=== PATIENT | female | born 1960 | race Caucasian/White ===

== ENCOUNTER 2018-06-29 09:54 | Emergency (ER) | payer OTHER ==
[2018-06-29] MEDS ORDERED: Lidocaine 1% 10 ML MDV INJECT ONE (10:18)
--- NOTE | 2018-06-29 10:24 | EDM.PDOC ---
ED HPI GENERAL MEDICAL PROBLEM - General Chief Complaint: Laceration Stated Complaint: L PINKY FINGER LAC Time Seen by Provider: 06/29/18 10:18 Source of Information: Reports: Patient, Family (spouse) History Limitations: Reports: No Limitations - History of Present Illness INITIAL COMMENTS - FREE TEXT/NARRATIVE: 57-year-old female presents to the ED with an acute flap laceration to the volar aspect of her left fifth finger over the MCP joint. She states she was cleaning a picture frame and it broke and she lacerated it on sharp glass. She believes her tetanus toxoid is up-to-date but is going to check with her clinic in [place]. She denies any other injuries. Injury occurred within the last hour. Of note the patient is right hand dominant. Onset: Today Onset Date: 06/29/18 Onset Time: 09:40 Duration: Minutes: Location: Reports: Upper Extremity, Left (Volar aspect of the left fifth finger) Quality: Reports: Ache ( over the MCP joint.) Severity: Moderate Improves with: Reports: None Worsens with: Reports: None Context: Reports: Trauma. 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: Other (see below) (None.) - Related Data Allergies Allergy/AdvReac Type Severity Reaction Status Date / Time No Known Allergies Allergy Verified 06/29/18 10:24 Home Meds: Home Meds Levothyroxine Sodium [Synthroid] 137 mcg PO DAILY 06/29/18 [History] Verapamil [Covera-HS] 240 mg PO DAILY 06/29/18 [History] Past Medical History Cardiovascular History: Reports: Hypertension Endocrine/Metabolic History: Reports: Hypothyroidism (On levothyroxine) Social & Family History - Living Situation & Occupation Living situation: Reports: (Currently visiting from [place].) ED ROS GENERAL - Review of Systems Review Of Systems: See Below Constitutional: Reports: No Symptoms HEENT: Reports: No Symptoms Respiratory: Reports: No Symptoms Cardiovascular: Reports: Blood Pressure Problem Endocrine: Reports: Fatigue GI/Abdominal: Reports: No Symptoms : Reports: No Symptoms Musculoskeletal: Reports: No Symptoms Skin: Reports: Other (Laceration volar aspect of left fifth finger as described in history of present illness) Neurological: Reports: Other (tearful) Psychiatric: Reports: No Symptoms Hematologic/Lymphatic: Reports: Other Immunologic: Reports: No Symptoms ED EXAM, SKIN/RASH Exam: See Below Exam Limited By: No Limitations General Appearance: Anxious, Moderate Distress (Very apprehensive.) Extremities: Other (Examination was limited to the left hand. She has a flap laceration at the base of the left fifth finger over the MCP joint. She has full range of motion with no evidence of tendon laceration and she has normal sensation in the distal aspect of the radial and ulnar aspect of her finger. Wound will require) Neurological: Alert, Oriented ( laceration repair.), CN II-XII Intact, Normal Cognition Psychiatric: Anxious, Tearful Skin: Warm, Dry, Intact, Normal Color, No Rash ED SKIN PROCEDURES - Laceration/Wound Repair Left Lower Anterior Proximal Digit - 5th (Baby) Lac/Wound length In cm: 2.5 (Flap laceration at the base of the left fifth finger.) Appearance: Subcutaneous, Clean Distal NVT: Neuro & Vascular Intact Anesthetic Type: Local Local Anesthesia - Lidocaine (Xylocaine): 1% Plain Local Anesthetic Volume: Other (8 mL) Skin Prep: Saline Exploration/Debridement/Repair: Wound Explored Closed with: Sutures Suture Size: 4-0 # of Sutures: 8 Suture Type: Nylon, Interrupted, Simple Course - Vital Signs Last Recorded V/S: Last Vital Signs Temp 35.9 C 06/29/18 10:14 Pulse 87 06/29/18 10:14 Resp 16 06/29/18 10:14 BP 157/89 H 06/29/18 10:14 Pulse Ox 95 06/29/18 10:14 - Orders/Labs/Meds Orders: Active Orders 24 hr Category Date Time Status Vaccines to be Administered [RC] PER UNIT ROUTINE Care 06/29/18 10:50 Active Meds: Medications Discontinued Medications Generic Name Dose Route Start Last Admin Trade Name Freq PRN Reason Stop Dose Admin Diphtheria/Tetanus/Acell Pertussis 0.5 ml 06/29/18 10:50 06/29/18 11:04 Adacel IM 06/29/18 10:51 0.5 ml .ONCE ONE Administration Lidocaine HCl 10 ml 06/29/18 10:18 06/29/18 10:55 Xylocaine 1% INJECT 06/29/18 10:19 10 ml ONETIME ONE Administration - Radiology Interpretation Free Text/Narrative:: 57-year-old female presents to the ED with an acute flap laceration to the volar aspect of her left fifth finger over the MCP joint and proximal phalanx. It is about 2.5 cm in length. After consultation with her clinic in [place] appears that her last tetanus diphtheria and pertussis vaccine was updated in 2003. Therefore she will be for TDap today. Plan wound will be repaired under local anesthetic using lidocaine 1%. - Re-Assessments/Exams Free Text/Narrative Re-Assessment/Exam: 06/29/18 11:23 laceration base of the left fifth finger was cleansed with saline and then anesthetized with 1% lidocaine. Wound was then explored and no evidence of flexor tendon laceration identified. One small arterial bleed appreciated and was ligated to stop the bleeding. Wound was closed with 8 4-0 Ethilon sutures in total. Sutures will need to be removed in 10-12 days time. Tdap was updated today. Departure - Departure Time of Disposition: 11:19 Disposition: Home, Self-Care 01 Condition: Fair Clinical Impression: Laceration of finger Qualifiers: Encounter type: initial encounter Finger: little finger Damage to nail status: without damage Foreign body presence: without foreign body Laterality: left Qualified Code(s): S61.217A - Laceration without foreign body of left little finger without damage to nail, initial encounter - Discharge Information *PRESCRIPTION DRUG MONITORING PROGRAM REVIEWED*: Not Applicable *COPY OF PRESCRIPTION DRUG MONITORING REPORT IN PATIENT GWENDOLYN: Not Applicable Instructions: Laceration Care, Adult, [id number] Referrals: PCP,Not In Area [Primary Care Provider] - Forms: ED Department Discharge Additional Instructions: Evaluation the emergency room today in regards to a flap laceration that occurred from sharp glass at the base of your left fifth finger. This created a flap laceration extending over the fifth metacarpal phalangeal joint and proximal phalanx. No tendon injury identified. Arterial bleed appreciated and was ligated. Sutures were placed in total. Initial dressing to remain in place for the next 2 days. After this she may cleanse the area with soap and water. Showering is okay. Then apply topical anabolic such as bacitracin or Polysporin once daily and cover with a bandage to keep clean. Sutures need to be removed in 10 -12 days time. Follow-up with medical provider if any signs of infection occur such as increased redness swelling or obvious pus. Motrin 600 mg every 6 hours needed for pain relief. Tetanus, diphtheria and pertussis vaccine was updated today and is good for the next 10 years. - My Orders Last 24 Hours: My Active Orders 06/29/18 10:50 Vaccines to be Administered [RC] PER UNIT ROUTINE - Assessment/Plan Last 24 Hours: My Active Orders 06/29/18 10:50 Vaccines to be Administered [RC] PER UNIT ROUTINE
[2018-06-29] MEDS ORDERED: Diphtheria,Pertussis(Acell),Tetanus Vaccine 0.5 ML Syringe IM ONE (10:50)
== END 2018-06-29 11:30 | disposition home or self-care (01) ==
LOC: JD.ED 09:54
DX: S61.217A Laceration without foreign body of left little finger without damage to nail, initial encounter (principal); Z23 Encounter for immunization; I10 Essential (primary) hypertension; E03.9 Hypothyroidism, unspecified; Z79.899 Other long term (current) drug therapy; W26.8XXA Contact with other sharp object(s), not elsewhere classified, initial encounter
CPT/HCPCS: 12001; 90471; 90700; 99282; J2001